=== PATIENT | female | born 1970 | race Hispanic/Latino ===

== ENCOUNTER 2017-09-30 13:54 | Emergency (ER) | payer SELFPAY ==
[2017-09-30 14:06] VITALS: BP 108/54
[2017-09-30 15:03] LABS: Amorphous Crystals,Urine 1+; Bilirubin,Urine NEG (Negative); Blood,Urine NEG (Negative); Color,Urine Yellow (Yellow); Protein,Urine <15 mg/dL mg/dL (Negative); Urobilinogen,Urine < 2.0 mg/dL (<2.0)
[2017-09-30 15:04] LABS: WBC,Urine < 1.0 /HPF (0.0-6.0)
--- NOTE | 2017-09-30 19:49 | Emergency Department Report ---
ED Female HPI - General Chief complaint: Urogenital-Female Stated complaint: EYE IRRITATION Time Seen by Provider: 09/30/17 19:08 Source: patient Mode of arrival: Ambulatory Limitations: No Limitations - History of Present Illness Initial comments: 47-year-old female comes in concern for urinary frequency and dysuria when she urinates. Patient states that her boyfriend was diagnosed with acute cystitis and has been placed on Macrobid. She is concern for possible exposure to STD. Patient also comes in complaining of both eyes are itching and draining. Patient reports that she used some Esta Lawder cream under her eyes and now they're irritated. Patient denies any fever chills no nausea no vomiting. She denies any vaginal discharge no vaginal pain. Patient requested to be treated for STD exposure. MD Complaint: dysuria, possible STD - Related Data Previous Rx's Medication Instructions Recorded Last Taken Type Ciprofloxacin HCl [Ciprofloxacin 500 mg PO Q12HR #10 tab 05/31/15 Unknown Rx TAB] HYDROcodone/APAP 5-325 [[place] 1 each PO Q6HR PRN #12 tablet 05/31/15 Unknown Rx 5/325] metroNIDAZOLE [Flagyl] 500 mg PO Q12HR #14 tab 05/31/15 Unknown Rx Allergies Allergy/AdvReac Type Severity Reaction Status Date / Time blueberry Allergy Hives Verified 05/31/15 08:14 ED Review of Systems ROS: Stated complaint: EYE IRRITATION Other details as noted in HPI Constitutional: denies: chills, fever Eyes: denies: eye pain, eye discharge, vision change ENT: denies: ear pain, throat pain Respiratory: denies: cough, shortness of breath, wheezing Cardiovascular: denies: chest pain, palpitations Endocrine: no symptoms reported Gastrointestinal: denies: abdominal pain, nausea, diarrhea Genitourinary: urgency, dysuria, frequency. denies: discharge Musculoskeletal: denies: back pain, joint swelling, arthralgia Skin: denies: rash, lesions Neurological: denies: headache, weakness, paresthesias Psychiatric: denies: anxiety, depression Hematological/Lymphatic: denies: easy bleeding, easy bruising ED Past Medical Hx - Surgical History Past Surgical History?: Yes Hx Cholecystectomy: Yes (21 years ago) Additional Surgical History: x2 D&C x2 - Social History Smoking Status: Heavy Tobacco Smoker Substance Use Type: Alcohol, Cocaine - Medications Home Medications: Home Medications Medication Instructions Recorded Confirmed Last Taken Type Ciprofloxacin HCl [Ciprofloxacin 500 mg PO Q12HR #10 tab 05/31/15 Unknown Rx TAB] HYDROcodone/APAP 5-325 [[place] 1 each PO Q6HR PRN #12 tablet 05/31/15 Unknown Rx 5/325] metroNIDAZOLE [Flagyl] 500 mg PO Q12HR #14 tab 05/31/15 Unknown Rx ED Physical Exam - General Limitations: No Limitations General appearance: alert, in no apparent distress - Head Head exam: Present: atraumatic, normocephalic - Eye Eye exam: Present: other (bilateral irritation to both eyes. With some discharge noted) - ENT ENT exam: Present: mucous membranes moist - Neck Neck exam: Present: normal inspection - Respiratory Respiratory exam: Present: normal lung sounds bilaterally. Absent: respiratory distress - GI/Abdominal GI/Abdominal exam: Present: soft, normal bowel sounds - Extremities Exam Extremities exam: Present: normal inspection - Back Exam Back exam: Present: normal inspection - Neurological Exam Neurological exam: Present: alert, oriented X3 - Psychiatric Psychiatric exam: Present: normal affect, normal mood - Skin Skin exam: Present: warm, dry, intact, normal color. Absent: rash ED Course Vital Signs 09/30/17 13:57 Pulse Rate 88 Respiratory 18 Rate Blood Pressure 108/54 O2 Sat by Pulse 98 Oximetry ED Medical Decision Making - Medical Decision Making Patient's been evaluated by this provider fast track. I discussed the patient to discontinue the eye cream that she is used for eyes since it is irritating them. I also discussed the patient I will treat her for a possible exposure to STD. I discussed her that her urine was fine as no leukocytes. No blood there is no elevated white count. Patient verbalized understanding of the plan. Critical care attestation.: If time is entered above; I have spent that time in minutes in the direct care of this critically ill patient, excluding procedure time. ED Disposition Clinical Impression: Contact dermatitis due to chemicals, Possible exposure to STD Disposition: DC-01 TO HOME OR SELFCARE Is pt being admited?: No Does the pt Need Aspirin: No Condition: Stable Instructions: Safe Sex (ED) Additional Instructions: Please discontinue eye creams. Please inform her partner that give been treated. You can follow-up with her primary care provider. Referrals: PRIMARY CARE, [Primary Care Provider] - 3-5 Days Forms: Work/School Release Form(ED)
[2017-09-30] MEDS: ZITHROMAX PO ONE (20:01)
[2017-09-30] MEDS: ROCEPHIN IM ONE (20:01)
[2017-09-30] MEDS: XYLOCAINE 1% MPF 5 mL INFILTRATI ONE (20:01)
== END 2017-09-30 20:02 | disposition home or self-care (01) ==
LOC: ED 13:54
DX: L25.3 Unspecified contact dermatitis due to other chemical products (principal); R30.0 Dysuria; F17.200 Nicotine dependence, unspecified, uncomplicated; F14.10 Cocaine abuse, uncomplicated; Z90.49 Acquired absence of other specified parts of digestive tract; Z91.018 Allergy to other foods
CPT/HCPCS: 81001; 96372; 99283; J0696